=== PATIENT | female | born 1980 | race Caucasian/White ===

== ENCOUNTER 2017-03-04 08:33 | Emergency (ER) | payer BC ==
[2017-03-04 08:40] VITALS: BP 101/65
--- NOTE | 2017-03-04 10:22 | UC ---
Respiratory Complaint HPI - HPI Summary HPI Summary: Pt has past diagnosis of asthma, but no problems or meds for at least 10 years. Recently moved, has been under stress, had lots of tight chest and wheezing for a couple days (especially last night and after going for a run today). Denies allergies, fever, cough, or nasal congestion. - History of Current Complaint Chief Complaint: UCRespiratory Stated Complaint: ASTHMA COMPLAINT Time Seen by Provider: 03/04/17 10:04 Hx Obtained From: Patient Hx Last Menstrual Period: 02/17/17 ?: No Onset/Duration: Gradual Onset, Lasting Days Timing: Constant Severity Initially: Mild Severity Currently: Mild Character: Cough: Nonproductive Aggravating Factors: Deep Breaths, Recumbent Position Alleviating Factors: Upright Position Associated Signs And Symptoms: Positive: Wheezing - Allergies/Home Medications Allergies/Adverse Reactions: Allergies Allergy/AdvReac Type Severity Reaction Status Date / Time Penicillins Allergy Joint Pain Verified 04/09/16 10:40 PMH/Surg Hx/FS Hx/Imm Hx Previously Healthy: Yes - Surgical History Surgical History: Yes Surgery Procedure, Year, and Place: - Family History Known Family History: Positive: Hypertension - Social History Lives: With Family Alcohol Use: Daily Substance Use Type: None Smoking Status (MU): Never Smoked Tobacco Review of Systems Constitutional: Negative Skin: Negative Eyes: Negative ENT: Negative Respiratory: Shortness Of Breath, Cough Cardiovascular: Negative Gastrointestinal: Negative Genitourinary: Negative Motor: Negative Neurovascular: Negative Musculoskeletal: Negative Neurological: Negative Psychological: Negative All Other Systems Reviewed And Are Negative: Yes Physical Exam Triage Information Reviewed: Yes Appearance: Well-Appearing, No Pain Distress, Well-Nourished Vital Signs: Initial Vital Signs Temp 97.8 F 03/04/17 08:37 Pulse 90 03/04/17 08:37 Resp 16 03/04/17 08:37 BP 101/65 03/04/17 08:37 Vital Signs Reviewed: Yes Eye Exam: Normal Eyes: Positive: Conjunctiva Clear ENT Exam: Normal ENT: Positive: Normal ENT inspection, Hearing grossly normal, Pharynx normal, TMs normal Dental Exam: Normal Neck exam: Normal Neck: Positive: Supple, Nontender, No Lymphadenopathy Respiratory Exam: Normal Respiratory: Positive: Chest non-tender, Lungs clear, Normal breath sounds, No respiratory distress, No accessory muscle use Cardiovascular Exam: Normal Cardiovascular: Positive: RRR, No Murmur Musculoskeletal Exam: Normal Neurological Exam: Normal Neurological: Positive: Alert Psychological Exam: Normal Skin Exam: Normal Respiratory Course/Dx - Differential Dx/Diagnosis Provider Diagnoses: asthma exacerbation Discharge - Discharge Plan Condition: Stable Disposition: HOME Prescriptions: Albuterol HFA INHALER* [Ventolin HFA Inhaler*] 1 - 2 puff INH Q4H PRN #1 mdi PRN Reason: wheeze, cough Cetirizine* [ZyrTEC 10 MG TAB*] 10 mg PO DAILY #30 tab Patient Education Materials: Asthma (ED) Referrals: [facility] [place] [facility] [Outside] Additional Instructions: As we discussed, you will need to be seen again if you need the inhaler for symptoms more than twice per week. You can continue to use it as a preventative measure before exercise, however. Please come back here at any time for trouble breathing unrelieved by the inhaler. You should arrange to see a primary care within the next month or two.
== END 2017-03-04 10:20 | disposition home or self-care (01) ==
LOC: UCEAST 08:33
DX: J45.901 Unspecified asthma with (acute) exacerbation (principal)
CPT/HCPCS: 99212; G0463